=== PATIENT | male | born 1980 | race African-American/Black ===

== ENCOUNTER → 2017-04-01 06:29 | Day surgery (SDC) | payer OTHER ==
[~2017-04-01 06:29] MED LIST: ACETAMINOPHEN500 M1 PO; FLAGYL500 MG PO; KEPPRA1000 MG PO; KLONOPIN0.5 MG PO; LOVENOX40 MG/0.4 SC; MELATONIN 3 MG1 TAB PO; PREDNISONE20 MG PO; PROTONIX20 MG PO; PROVENTIL/2.5 MG/3 M INH; VIMPAT200 MG PO
--- NOTE | 2017-04-01 08:35 | NUR ---
0800--PT OPENS EYES WITH VERBAL COMMUNICATION, ANSWERS YES TO ALL QUESTIONS ASKED. GUARDS AT BEDSIDE STATE PT IS UNRELIABLE, NOT ABLE TO ACQUIRE HEALTH HISTORY PER PT AND LIMITED INFO BROUGHT WITH PT. WENDY QUINTANA
--- NOTE | 2017-04-01 08:40 | NUR ---
0810--GUARD STATE PT STATED HE HAD BREAKFAST THIS A.M. STEFANO CALLED NURSE AT FACILITY AND NURSE VERIFIED PT HAD NOT EATEN THIS A.M. WENDY QUINTANA
[2017-04-01 08:44] VITALS: BP 112/81
--- NOTE | 2017-04-01 17:46 | NUR ---
1740 DISCHARGE INSTRUCTIONS COMPLETE. NO PRESCRIPTIONS GIVEN. PEG TUBE SITE CDI. PICC LINE FLUSHED AND HEP LOCKED. 1800ML EMPTIED FROM PATIENT'S BRAGG BAG. GUARDS SIGNED DOCUMENTS AND HAVE NO QUESTIONS OR CONCERNS AT THIS TIME. WAITING FOR EMS TO ESCORT PATIENT BACK TO [facility].
--- NOTE | 2017-04-02 07:48 | OP ---
PATIENT NAME: CHEN KENNEDY MEDICAL RECORD: [id number] :78 LOCATION:D.OPS ADMISSION DATE: SURGEON: FANY RUBIN MD DATE OF OPERATION: 04/01/2017 SURGEON: Fany Rubin MD (JJ) PREOPERATIVE DIAGNOSES: 1. Severe protein malnutrition. 2. Multiple sclerosis. POSTOPERATIVE DIAGNOSES: 1. Severe protein malnutrition. 2. Multiple sclerosis. PROCEDURE PERFORMED: Esophagogastroduodenoscopy with percutaneous endoscopic gastrostomy tube placement. ANESTHESIA: Total intravenous anesthesia. COMPLICATIONS: None. SPECIMENS: None. Case was contaminated. ESTIMATED BLOOD LOSS: 5 cc. OPERATIVE COURSE: After consent was obtained, the patient was taken to the endoscopy suite and placed in the supine position on the hospital bed. Total intravenous anesthesia was given. A bite block was placed. Hurricaine spray was administered. The endoscope was passed through the bite block, passed into the oropharynx. Under direct endoscopic vision, it was passed through the esophagus and then into the stomach. The stomach was insufflated. The left upper quadrant was transilluminated and the site was marked. The skin was prepped and draped in typical sterile fashion. Local anesthetic was injected. A skin incision was made with #11 blade scalpel. The angiocatheter was passed through the abdominal wall and into the lumen of the stomach. A wire was passed and it was grasped with the grasper. The wire and scope were then removed. The gastrostomy tube was secured to the wire in the standard pull technique. Gastrostomy tube was pulled through the oropharynx into the abdominal wall, was sutured to the skin at 2 cm. At the end of the case, all needle and instrument counts were correct. No complications occurred. The patient tolerated the procedure well and was transferred to recovery room in satisfactory condition. TRANSINT:[id number] Voice Confirmation ID: [id number] DOCUMENT ID: [id number] OPERATIVE REPORT [id number] MARCIACHEN FANY RUBIN MD at 0748 CC: [id number] DICTATION DATE: 04/01/17 165 REFLESHER: 04/01/17 1935 [facility] 04/01/17 [facility] [address] [place] [address]
== END | disposition home or self-care (01) ==
LOC: D.OPS 06:29
DX: R13.10 Dysphagia, unspecified (principal); J45.909 Unspecified asthma, uncomplicated; E46 Unspecified protein-calorie malnutrition; G35 Multiple sclerosis; Z01.812 Encounter for preprocedural laboratory examination; G93.40 Encephalopathy, unspecified